=== PATIENT | male | born 1965 | race Two or more races ===

== ENCOUNTER 2020-08-30 02:10 | Emergency (ER) | payer OTHER ==
--- NOTE | 2020-08-30 03:09 | RADIOLOGY REPORT (SQ) ---
CLINICAL INDICATION: bone pain. . TECHNIQUE: 3 view(s) were obtained of the right shoulder. COMPARISON: None. FINDINGS: No acute displaced fracture is identified of the shoulder. Alignment appears anatomic. Osteoarthritis. Surrounding soft tissues are unremarkable. IMPRESSION: No evidence of acute bony injury to the shoulder.
[2020-08-30] MEDS ORDERED: OXYCODONE-ACETAMINOPHEN 5-325 MG TABLET PO ONE (07:28)
--- NOTE | 2020-08-30 07:31 | ER Document Report ---
ED Extremity Problem, Upper - General Chief Complaint: Shoulder Pain Stated Complaint: RIGHT SHOULDER PAIN Time Seen by Provider: 08/30/20 07:26 Notes: CHIEF COMPLAINT: Right shoulder injury HPI: 54-year-old male presenting for right shoulder injury that occurred while he was sleeping. Patient states he does not have daily problems with his shoulder. Patient had an injury to the shoulder 2 years ago that took 1 to 2 weeks to get better. Patient states that he believes he may have rolled over but does not recall something specifically popping in the shoulder but now states that he cannot elevate the arm at the shoulder. Denies numbness or tingling in the fingertips. ROS: See HPI - all other systems were reviewed and are otherwise negative Constitutional: no fever Integumentary: no rash Allergy: no hives Musculoskeletal: + extremity pain or swelling Neurological: no numbness/tingling, + weakness MEDICATIONS: I agree with the patient medications as charted by the RN. ALLERGIES: I agree with the allergies as charted by the RN. PAST MEDICAL HISTORY/PAST SURGICAL HISTORY: Reviewed and agree as charted by RN. SOCIAL HISTORY: Reviewed and agree as charted by RN. FAMILY HISTORY: No significant familial comorbid conditions directly related to patient complaint EXAM: Reviewed vital signs as charted by RN. CONSTITUTIONAL: Alert and oriented and responds appropriately to questions. Well-appearing; well-nourished HEAD: Normocephalic; atraumatic EYES: PERRL; Conjunctivae clear, sclerae non-icteric ENT: normal nose; no rhinorrhea; moist mucous membranes NECK: Supple without meningismus CARD: symmetric distal pulses RESP: Normal chest excursion without splinting or tachypnea ABD/GI: non-distended BACK: The back appears normal EXT: There is limited abduction, abduction, internal and external rotation of the right arm at the shoulder secondary to pain. Pain appears to be more posterior on palpation. Brachial radial and ulnar pulses are present in the right upper extremity. Sensation is intact in the fingertips with capillary refill less than 3 seconds SKIN: Normal color for age and race; warm; dry; good turgor; no acute lesions noted NEURO: sensory function intact PSYCH: The patient's mood and manner are appropriate. Grooming and personal hygiene are appropriate. MDM: 54-year-old male injury while sleeping to the right shoulder, likely a labral tear or rotator cuff injury. sling for comfort, sling instructions given. Pain medication, orthopedic follow-up indicates he will go to [place] to follow-up as that is where he normally lives - Related Data Allergies/Adverse Reactions: Iodine and Iodide Containing Produc Allergy (Severe, Verified 08/30/20 06:47) Swelling of Throat Home Medications: amilodipine Past Medical History - Social History Smoking Status: Current Every Day Smoker Family History: Reviewed & Not Pertinent - Past Medical History Cardiac Medical History: Reports: Hx Hypertension Past Surgical History: Reports: Hx Orthopedic Surgery - left shoulder Physical Exam - Vital signs Vitals: Temp Pulse Resp BP Pulse Ox 97.7 F 77 18 150/93 H 100 08/30/20 02:23 08/30/20 02:23 08/30/20 02:23 08/30/20 02:23 08/30/20 02:23 Course - Vital Signs Vital signs: Temp Pulse Resp BP Pulse Ox 98.1 F 84 18 169/99 H 94 08/30/20 06:38 08/30/20 06:38 08/30/20 06:38 08/30/20 06:38 08/30/20 06:38 Discharge - Discharge Clinical Impression: Shoulder injury Qualifiers: Encounter type: initial encounter Laterality: right Qualified Code(s): S49.91XA - Unspecified injury of right shoulder and upper arm, initial encounter Condition: Stable Disposition: HOME, SELF-CARE Instructions: Sling to be Used ([facility]) Additional Instructions: 1. ice the shoulder twice daily for 10 minutes each time 2. use the sling for comfort during the day only for 2-3 days. Do not sleep in the sling 3. take the arm out of the sling 3-4 times daily and perform gentle range of motion exercises to maintain flexibility in the shoulder 4. medications for pain as directed. Prescriptions: Cyclobenzaprine HCl [Flexeril 10 mg Tablet] 10 mg PO TIDP PRN #15 tab PRN Reason: Ibuprofen [Motrin 600 Mg Tablet] 600 mg PO Q6H #15 tablet Hydrocodone/Acetaminophen [Lorain 5-325 mg Tablet] 1 tab PO Q4 PRN #15 tablet PRN Reason:
[2020-08-30 07:52] VITALS: BP 140/98
== END 2020-08-30 07:59 | disposition home or self-care (01) ==
LOC: ER 02:10
DX: S49.91XA Unspecified injury of right shoulder and upper arm, initial encounter (principal); X58.XXXA Exposure to other specified factors, initial encounter; F17.200 Nicotine dependence, unspecified, uncomplicated; I10 Essential (primary) hypertension; Z79.899 Other long term (current) drug therapy
CPT/HCPCS: 99284